=== PATIENT | female | born 2000 | race Hispanic/Latino ===

== ENCOUNTER 2025-02-23 18:00 | Inpatient (IN) | payer BC ==
[2025-02-23 18:45] VITALS: BMI 37.5
[2025-02-23] MEDS ORDERED: Tranexamic Acid 1,000 MG/10 ML VIAL IVP PRN (18:53)
[2025-02-23] MEDS ORDERED: Acetaminophen 500 MG TAB PO PRN (18:53)
[2025-02-23] MEDS ORDERED: HYDROcodone/Acetaminophen 5/325 mg Tablet PO PRN (18:53)
[2025-02-23] MEDS ORDERED: Ibuprofen 800 MG TAB PO PRN (18:53)
[2025-02-23] MEDS ORDERED: Lidocaine 1% (PF) 30 ML VIAL SC PRN (18:53)
[2025-02-23] MEDS ORDERED: Carboprost 250 MCG/ML AMP IM PRN (18:53)
[2025-02-23] MEDS ORDERED: hydrALAZINE 20 MG/ML VIAL SLOW IVP PRN (18:53)
[2025-02-23] MEDS ORDERED: Methylergonovine 0.2 MG/ML VIAL IM PRN (18:53)
[2025-02-23] MEDS ORDERED: Ondansetron PF 4 MG/2 ML Vial IVP PRN (18:53)
[2025-02-23] MEDS ORDERED: Diphenoxylate HCl/Atropine Tablet PO PRN (18:53)
[2025-02-23] MEDS ORDERED: Oxytocin 30 units/NS 500 ML 500 ML IV SCH (19:00)
[2025-02-23 19:22] LABS: Hematocrit 31.4 % (34.9-44.5); Hemoglobin 10.4 g/dL (12.0-15.5); Mean Corpuscular Hemoglobin 27.8 pg (27.0-33.0); Mean Corpuscular Volume 84.0 fL (81.6-98.3); Platelet Count 209 10x3/uL (150-450); Red Blood Cell (RBC) Count 3.74 10x6/uL (3.90-5.03); White Blood Cell (WBC) Count 5.46 10x3/uL (3.5-10.5)
[2025-02-23 20:14] LABS: Syphilis Antibody Index 0.08 S/CO (<1.00 Non-Reactive)
[2025-02-23 20:16] LABS: Hep B Surf Ag - L&D Non-Reactive S/CO (NonReactive)
[2025-02-24] MEDS: Penicillin G Potassium 5 MILL.UNITS in Sodium Chloride 0.9% 100 ML IVPB SCH (03:06)
[2025-02-24] MEDS: fentaNYL/Ropivacaine Epidural 100 ML ONE (03:29)
[2025-02-24] MEDS ORDERED: Acetaminophen 325 MG TAB PO PRN (03:34)
[2025-02-24] MEDS ORDERED: diphenhydrAMINE 50 MG/ML VIAL IVP PRN (03:34)
[2025-02-24] MEDS ORDERED: Ondansetron PF 4 MG/2 ML Vial IVP PRN ×2 (03:34→12:14)
[2025-02-24] MEDS ORDERED: fentaNYL 2 mcg/Ropivacaine 0.2% Epidural 100 ML CADD EPIDURAL SCH (03:45)
[2025-02-24] MEDS ORDERED: Communication Order-Pharmacy FS SCH (03:45)
[2025-02-24] MEDS: Oxytocin 30 units/NS 500 ML 500 ML IV SCH (05:27)
[2025-02-24] MEDS: Penicillin G 2.5 MILL.units 2.5 MILL.UNITS in Premix 1 BAG IVPB SCH (06:40)
[2025-02-24] MEDS ORDERED: Bupivacaine/Epinephrine 0.25% 30 ML VIAL ONE (08:00)
[2025-02-24 10:16] LABS: Analyzer IN Cardio CS NICU; Critical Notified By: clumpkins rt
[2025-02-24 10:17] LABS: Analyzer IN Cardio CS NICU; Critical Notified By: clumpkins rt; pH (Cord, venous) 7.260 (7.250-7.350)
[2025-02-24] MEDS ORDERED: Lanolin Ointment 7 GM TUBE TOP PRN (12:14)
[2025-02-24] MEDS ORDERED: Benzocaine-Menthol 82.5 ML CAN TOP PRN (12:14)
[2025-02-24] MEDS ORDERED: Bisacodyl 10 MG SUPP PR PRN (12:14)
[2025-02-24] MEDS ORDERED: Preparation H Ointment 28 GM TUBE PR PRN (12:14)
[2025-02-24] MEDS ORDERED: diphenhydrAMINE 25 MG CAP PO PRN (12:14)
[2025-02-24] MEDS ORDERED: Milk Of Magnesia 30 ML UDCUP PO PRN (12:14)
[2025-02-24] MEDS ORDERED: hydrALAZINE 20 MG/ML VIAL SLOW IVP PRN (12:14)
[2025-02-24] MEDS: CEFAZOLIN 2 GM VIAL ONE (12:42)
[2025-02-24] MEDS: Ibuprofen 800 MG TAB PO SCH (18:46)
[2025-02-24] MEDS: Ferrous Sulfate 325 MG TAB PO SCH (19:38)
[2025-02-24] MEDS: HYDROcodone/Acetaminophen 5/325 mg Tablet PO PRN (20:03)
[2025-02-25] MEDS: Ibuprofen 800 MG TAB PO SCH (01:41)
[2025-02-25 07:47] VITALS: BP 112/57; TEMP 97.7
== END 2025-02-25 18:29 | disposition home or self-care (01) | DRG 807 ==
LOC: CSHLD 18:03 → CSHPP 02-24 12:25
PROVIDERS: ADMIT Student in an Organized Health Care Education/Training Program; ATTEND Student in an Organized Health Care Education/Training Program
PROC: 10E0XZZ Delivery of Products of Conception, External Approach (ICD-10-PCS; principal; 2025-02-24)
PROC: 4A1HXCZ Monitoring of Products of Conception, Cardiac Rate, External Approach (ICD-10-PCS; 2025-02-24)
PROC: 3E0DXGC Introduction of Other Therapeutic Substance into Mouth and Pharynx, External Approach (ICD-10-PCS; 2025-02-24)
PROC: 10907ZC Drainage of Amniotic Fluid, Therapeutic from Products of Conception, Via Natural or Artificial Opening (ICD-10-PCS; 2025-02-24)
DX: O48.0 Post-term pregnancy (principal); Z37.0 Single live birth; O99.214 Obesity complicating childbirth; O99.02 Anemia complicating childbirth; D50.9 Iron deficiency anemia, unspecified; M06.8A Other specified rheumatoid arthritis, other specified site; O99.892 Other specified diseases and conditions complicating childbirth; Z3A.40 40 weeks gestation of pregnancy; Z79.899 Other long term (current) drug therapy; Z79.82 Long term (current) use of aspirin; Z98.890 Other specified postprocedural states
CPT/HCPCS: 36415; 51702; 82805; 85027; 86780; 86850; 86900; 86901; 87340; 88307; J2540; J2590; J7120